=== PATIENT | female | born 1995 | race Caucasian/White ===

== ENCOUNTER 2016-06-08 19:55 | Inpatient (IN) | payer BC ==
[~2016-06-08] VITALS: Ht 167.6 cm; Wt 62.3 kg
[2016-06-08 21:39] LABS: HEMATOCRIT 37.1 % (37-47); MEAN CELL VOLUME 89.2 fL (80-100); MEAN CORPUSCULAR HEMOGLOBIN 31.3 pg (25-34); MEAN PLATELET VOLUME 9.3 fL (7.4-10.4); PLATELET COUNT 170 K/uL (130-400); RED BLOOD COUNT 4.16 M/uL (4.2-5.4); WHITE BLOOD COUNT 25.64 K/uL (4.8-10.8)
--- NOTE | 2016-06-08 21:50 | DIAGNOSTIC IMAGING REPORT ---
CHEST 2 VIEWS ROUTINE CLINICAL HISTORY: Atypical chest pain and shortness of breath COMPARISON STUDY: No previous studies for comparison. FINDINGS: The cardiac and mediastinal contours are normal. There is no failure. There is no lobar consolidation. There are no pleural effusions. There are a few wispy airspace opacities within the left midlung zone versus summation artifact.[ IMPRESSION: Minimal left midlung zone airspace opacities versus summation artifact. Electronically signed by: Salvador Moran M.D. 06/08/2016 9:48 PM Dictated Date/Time: 06/08/2016 9:47 PM
[2016-06-08] MEDS ORDERED: SODIUM CHLORIDE 0.9% 1000ML 1,000 ML IV STA ×2 (21:52→23:09)
[2016-06-08 22:00] LABS: BASO % 0.1 %; BASO ABS # 0.02 K/uL (0-0.2); COMPLETE YES; EOS % 0.1 %; IG% 0.4 %; LYMPH % 4.7 %; MONO % 2.9 %; NEUT % 91.8 %
[2016-06-08 22:05] LABS: ALT/SGPT 17 U/L (12-78); BLOOD UREA NITROGEN 10 mg/dl (7-18); BUN/CREATININE RATIO 11.7 (10-20); CARBON DIOXIDE 26 mmol/L (21-32); CHLORIDE 105 mmol/L (98-107); CREATININE 0.86 mg/dl (0.60-1.20); GLUCOSE 94 mg/dl (70-99); MAGNESIUM 2.3 mg/dl (1.8-2.4); POTASSIUM 3.5 mmol/L (3.5-5.1); SODIUM 140 mmol/L (136-145)
[2016-06-08 22:09] LABS: CALCIUM 9.9 mg/dl (8.5-10.1)
[2016-06-08] MEDS ORDERED: MELATAB2 PO (22:12)
[2016-06-08 22:16] LABS: ALB/GLOB RATIO 1.2 (0.9-2); ALKALINE PHOSPHATASE 55 U/L (45-117); AST/SGOT 14 U/L (15-37)
[2016-06-08 22:22] LABS: URINE APPEARANCE CLEAR (CLEAR); URINE BILIRUBIN NEG (NEG); URINE COLOR YELLOW; URINE NITRITE NEG (NEG); URINE SPECIFIC GRAVITY 1.013 (1.000-1.030); UROBILINOGEN NEG (NEG); ZZUR CULT IF INDIC CLEAN CATCH NO
[2016-06-08 22:23] LABS: MANUAL MICROSCOPIC REQUIRED? NO; REVIEW REQ? NO
[2016-06-09] MEDS ORDERED: LEVOFLOXACIN / D5W 750 MG IV STA (01:40)
[2016-06-09] MEDS ORDERED: POLYETHYLENE (MIRALAX) 17 GM PACK PO PRN (01:45)
[2016-06-09] MEDS ORDERED: MAGNESIUM HYDROXIDE SUSP 30 ML UDC PO PRN (01:45)
[2016-06-09] MEDS ORDERED: ZOLPIDEM TARTRATE 5 MG TAB PO PRN (01:45)
[2016-06-09] MEDS ORDERED: ALUMINUM/MAGNESIUM/SIMETH (MAALOX MAX) 30 ML UDC PO PRN (01:45)
[2016-06-09] MEDS ORDERED: ONDANSETRON INJ 2 MG/ML 2 ML VIAL IV PRN (01:45)
[2016-06-09] MEDS ORDERED: ACETAMINOPHEN 325 MG TAB PO PRN (01:45)
--- NOTE | 2016-06-09 02:02 | EMERGENCY ROOM VISIT NOTE ---
History First contact with patient: 20:05 Chief Complaint: RESPIRATORY PROBLEMS Stated Complaint: CANT BREATHE,FEVER,VOMIT Nursing Triage Summary: Patient states "I just woke up this morning and kept throwing up. I can't really breath very deeply, it kind of hurts. I have chest pain and fever too." History of Present Illness The patient is a 21 year old female who presents to the Emergency Room via private vehicle with complaints of "can't breathe, fever, vomiting". The patient states that she woke up this morning and felt as though she could not breathe, and then had nonstop coughing. She then developed pain with inspiration followed by vomiting. She vomited approximately 4 times between the hours of 7 AM and 9 AM. She states that she took her temperature and it was 101.6F. She states she developed chest pain, which is now diminishing and is across the chest with deep inspiration. She denies any close contacts with similar complaints. She states that she felt one other time similar to this when she began melatonin. She also struck her head , one week ago denies loss of consciousness. She has she's had trouble focusing since then. She states she cannot breathe deeply. She also notes that she did have periumbilical pain as well as hip pain earlier but denies any pain currently. There is no vaginal discharge or urinary symptoms. Review of Systems A complete 10-point Review of Systems was discussed with the patient, with pertinent positives and negatives listed in the History of Present Illness. All remaining Review of Systems questions can be considered negative unless otherwise specified. Past Medical/Surgical History Medical Problems: (1) Nausea & vomiting (2) Shortness of breath Family History Diabetes, heart disease, high blood pressure, cancer, gallbladder disease, kidney disease or stones. Social History Smoking Status: Never Smoker Social History: Patient is a [employer] student. Current/Historical Medications Scheduled Melatonin (Melatonin Maximum Strengt), 5 MG PO HS Allergies Coded Allergies: Doxycycline (Unverified Allergy, Unknown, DIZZINESS, 06/08/16) Physical Exam Vital Signs Date Time Temp Pulse Resp B/P Pulse Ox O2 Delivery O2 Flow Rate FiO2 06/09/16 02:19 37.3 100 23 116/70 97 06/09/16 01:40 101 18 110/69 98 Room Air 06/09/16 01:16 95 06/09/16 00:35 96 20 97 06/09/16 00:30 115/68 06/09/16 00:05 94 21 99 06/09/16 00:00 114/67 06/08/16 23:35 94 24 99 06/08/16 23:30 119/67 06/08/16 23:17 101 24 98 06/08/16 23:00 111/69 06/08/16 22:47 99 19 100 06/08/16 22:30 107/62 06/08/16 22:17 103 21 98 06/08/16 22:15 93 06/08/16 22:12 116/72 06/08/16 21:30 95 21 100 Room Air 06/08/16 21:25 97 24 06/08/16 20:56 110/75 06/08/16 20:53 98 Room Air 06/08/16 19:58 37.0 113 18 122/81 98 Room Air Physical Exam VITAL SIGNS - Vital signs and nursing notes were reviewed. Afebrile, normotensive, tachycardic at a rate of 113 bpm, and is saturating well on room air 98%. GENERAL -21-year-old female appearing her stated age who is in no acute distress. She appears nontoxic. Communicates well with provider and answers questions appropriately. SKIN - Without rashes. No petechial rashes. HEAD - NC/AT. EYES - PERRL with EOMI bilaterally. Sclera anicteric. Palpebral conjunctiva pink and moist with no injection noted. EARS - No deformities of external structures noted on gross examination bilaterally. No pain elicited with palpation of the tragus bilaterally. External auditory canals without discharge or otorrhea. Tympanic membranes pearly hill without retraction or bulging. No fluid or purulent material visualized behind the TM. Handle of malleus, umbo, cone of light, pars tensa/ flaccid all easily visualized. NOSE - Midline and without cyanosis. No epistaxis or purulent drainage noted. Septum midline without deviation or septal hematoma noted. MOUTH/OROPHARYNX - Without perioral cyanosis. Buccal mucosa pink and moist and without leukoplakia. Tongue midline with equal elevation of palate bilaterally. No tonsillar hypertrophy, erythema, or exudates noted. Good dentition noted. Evidence of tonsillectomy. NECK - Neck with FROM. Supple to palpation. No lymphadenopathy noted. No nuchal rigidity. LUNGS - Chest wall symmetric without accessory muscle use, intercostals retractions, or central cyanosis. Normal vesicular breath sounds CTA B/L. No wheezes, rales, or rhonchi appreciated. CARDIAC - RRR with S1/S2. No murmur, rubs, or gallops appreciated. Anterior chest pain is not reproducible. ABDOMEN - Abdominal contour without pulsations or visible masses. BS normoactive all four quadrants. No tenderness, palpable masses, hepatosplenomegaly, or ascites noted. No CVA tenderness. EXTREMITIES - No clubbing or peripheral cyanosis. No pretibial edema present. + 5/5 strength noted in UE/LE bilaterally. NEUROLOGIC - Cranial nerves II through XII grossly intact. Sensory intact to light touch throughout. Patellar reflexes +2/4. PSYCH - A&Ox3 and cooperates fully with examiner. Pt is very pleasant and interacts well with examiner. Medical Decision & Procedures ER Provider Diagnostic Interpretation: CHEST 2 VIEWS ROUTINE CLINICAL HISTORY: Atypical chest pain and shortness of breath COMPARISON STUDY: No previous studies for comparison. FINDINGS: The cardiac and mediastinal contours are normal. There is no failure. There is no lobar consolidation. There are no pleural effusions. There are a few wispy airspace opacities within the left midlung zone versus summation artifact.[ IMPRESSION: Minimal left midlung zone airspace opacities versus summation artifact. Electronically signed by: Salvador Moran M.D. 06/08/2016 9:48 PM Dictated Date/Time: 06/08/2016 9:47 PM Laboratory Results 06/08/16 21:10 Red Blood Count 4.16, Mean Corpuscular Volume 89.2, Mean Corpuscular Hemoglobin 31.3, Mean Corpuscular Hemoglobin Concent 35.0, Mean Platelet Volume 9.3, Neutrophils (%) (Auto) 91.8, Lymphocytes (%) (Auto) 4.7, Monocytes (%) (Auto) 2.9, Eosinophils (%) (Auto) 0.1, Basophils (%) (Auto) 0.1, Neutrophils # (Auto) 23.55, Lymphocytes # (Auto) 1.20, Monocytes # (Auto) 0.75, Eosinophils # (Auto) 0.03, Basophils # (Auto) 0.02 06/08/16 21:10 Test 06/08/16 21:00 06/08/16 21:10 06/08/16 21:14 06/08/16 21:15 Influenza Type A Antigen Neg for Influ A (NEG) Influenza Type B Antigen Neg for Influ B (NEG) White Blood Count 25.64 K/uL (4.8-10.8) Red Blood Count 4.16 M/uL (4.2-5.4) Hemoglobin 13.0 g/dL (12.0-16.0) Hematocrit 37.1 % (37-47) Mean Corpuscular Volume 89.2 fL (80-100) Mean Corpuscular Hemoglobin 31.3 pg (25-34) Mean Corpuscular Hemoglobin Concent 35.0 g/dl (32-36) Platelet Count 170 K/uL (130-400) Mean Platelet Volume 9.3 fL (7.4-10.4) Neutrophils (%) (Auto) 91.8 % Lymphocytes (%) (Auto) 4.7 % Monocytes (%) (Auto) 2.9 % Eosinophils (%) (Auto) 0.1 % Basophils (%) (Auto) 0.1 % Neutrophils # (Auto) 23.55 K/uL (1.4-6.5) Lymphocytes # (Auto) 1.20 K/uL (1.2-3.4) Monocytes # (Auto) 0.75 K/uL (0.11-0.59) Eosinophils # (Auto) 0.03 K/uL (0-0.5) Basophils # (Auto) 0.02 K/uL (0-0.2) RDW Standard Deviation 40.5 fL (36.4-46.3) RDW Coefficient of Variation 12.6 % (11.5-14.5) Immature Granulocyte % (Auto) 0.4 % Immature Granulocyte # (Auto) 0.09 K/uL (0.00-0.02) Anion Gap 9.0 mmol/L (3-11) Est Creatinine Clear Calc Drug Dose 97.6 ml/min Estimated GFR () 112.7 Estimated GFR (Non- 97.3 BUN/Creatinine Ratio 11.7 (10-20) Calcium Level 9.9 mg/dl (8.5-10.1) Magnesium Level 2.3 mg/dl (1.8-2.4) Total Bilirubin 2.7 mg/dl (0.2-1) Aspartate Amino Transf (AST/SGOT) 14 U/L (15-37) Alanine Aminotransferase (ALT/SGPT) 17 U/L (12-78) Alkaline Phosphatase 55 U/L (45-117) Total Creatine Kinase 44 U/L (26-192) Creatine Kinase MB < 0.5 ng/ml (0.5-3.6) Creatine Kinase MB Ratio (0-3.0) Total Protein 8.0 gm/dl (6.4-8.2) Albumin 4.3 gm/dl (3.4-5.0) Globulin 3.7 gm/dl (2.5-4.0) Albumin/Globulin Ratio 1.2 (0.9-2) Lipase 102 U/L (73-393) Thyroid Stimulating Hormone (TSH) 1.790 uIu/ml (0.300-4.500) Monoscreen NEG (NEG) Bedside D-Dimer 180 ng/mlFEU (0-450) Bedside Troponin I 0.000 ng/ml (0-0.045) Bedside Lactic Acid Venous 1.78 mmol/L (0.90-1.70) Test 06/08/16 22:10 Urine Color YELLOW Urine Appearance CLEAR (CLEAR) Urine pH 7.0 (4.5-7.5) Urine Specific [place] 1.013 (1.000-1.030) Urine Protein NEG (NEG) Urine Glucose (UA) NEG (NEG) Urine Ketones TRACE (NEG) Urine Occult Blood NEG (NEG) Urine Nitrite NEG (NEG) Urine Bilirubin NEG (NEG) Urine Urobilinogen NEG (NEG) Urine Leukocyte Esterase NEG (NEG) Urine Test NEG (NEG) Medications Administered Medications (Trade) Dose Ordered Sig/Avel Route Start Time Stop Time Status Last Admin Dose Admin Sodium Chloride 1,000 ml @ 999 mls/hr Q1H1M STAT IV 06/08/16 21:52 06/08/16 22:52 DC 06/08/16 22:12 999 MLS/HR Sodium Chloride 1,000 ml @ 999 mls/hr Q1H1M STAT IV 06/08/16 23:09 06/09/16 00:09 DC 06/08/16 23:27 999 MLS/HR Levofloxacin (Levaquin / D5W) 150 ml @ 100 mls/hr ONE STAT IV 06/09/16 01:40 06/09/16 03:09 DC 06/09/16 01:49 100 MLS/HR Medical Decision Patient was seen and evaluated as above. After obtaining a thorough history and physical examination IV access was initiated and the above workup was performed. Patient presents with inspiratory chest pain, vomiting and subjective complaints of fever. She clinically appears well upon examination. No abdominal pain. CBC does reveal leukocytosis at 25.64, and room blood cell count 4.16. Hemoglobin is normal. [id number] d-dimer is 180. Metabolic studies reveal normal electrolytes, point care lactic elevated at 1.78, total bilirubin elevated at 2.7, AST low at 14. Point care troponin is 0. Lipase and TSH are within normal limits. Urine reveals trace ketones, otherwise negative and negative urine . [place] and flu negative. Benefits versus risk of obtaining a CT scan of the abdomen and pelvis were discussed with patient and her mother. The patient has been reevaluated, and was provided 2 L of normal saline for her tachycardia. This initial EKG did reveal normal sinus rhythm, T-wave abnormality, which continued even after 2 L of normal saline to sinus tachycardia with T-wave abnormalities. Troponin was negative. As the patient continued to appear clinically well, but with the persistent EKG abnormality, as well as elevated bilirubin and tachycardia refractory to saline I do believe that further intervention is warranted here by inpatient admission. Her chest x-ray also revealed possible infiltrate further bleeding to the potential leukocytosis but I do not believe that this is the sole cause. I did discuss the case with the inpatient admission team, Dr. Velasquez. He agreed to evaluate the patient. Please refer to further documentation regarding the patient's stay. In evaluation treatment this patient the following differential diagnoses were entertained: ACS, GA, PE, pneumonia, sepsis, Sirs, , pyelonephritis, pleurisy, pericarditis, among others. Impression Primary Impression: Shortness of breath Additional Impressions: Nausea & vomiting Leukocytosis Total bilirubin, elevated Departure Information Dispostion Admitted as an inpatient Condition GOOD Referrals No Doctor, Assigned (PCP) Patient Instructions [facility] Problem Qualifiers
--- NOTE | 2016-06-09 02:19 | History and Physical ---
History & Physical Date & Time of Service: Jun 09, 2016 at 01:55 Chief Complaint: Cant Breathe,Fever,Vomit Primary Care Physician: No Doctor, Assigned History of Present Illness Source: patient 21 y/o F with no significant medical history. Woke up from sleep with fever, malaise, SOB and pleuritic L CP. She then developed nausea, vomiting and abdominal pain described as soreness which continued for several hours. She was febrile and tachycardic on arrival to the ER. She was not hypoxic. Initial labs reveal impressive leukocytosis and a CXR is equivocal for a L mid lung pneumonia. Past Medical/Surgical History Denies active medical issues Family History Father with HTN - both parents alive and well Social History Does not smoke or drink - [employer] major at [employer] Smoking Status: Never Smoker Allergies Coded Allergies: Doxycycline (Unverified Allergy, Unknown, DIZZINESS, 06/08/16) Home Medications Scheduled Melatonin (Melatonin Maximum Strengt), 5 MG PO HS Review of Systems Constitutional: + chills, + fatigue, + fever, + sweats, + weakness Eyes: No eye pain, No worsening of vision ENT: No hearing loss, No nasal symptoms, No unusual epistaxis Respiratory: + dyspnea at rest, + dyspnea on exertion, + problem reported ( pleuritic CP), + shortness of breath, No cough, No sputum, No wheezing Cardiovascular: + chest pain, + problem reported (tachycardia), No PND, No orthopnea Abdomen: + nausea, + pain, + vomiting, No GI bleeding, No constipation, No diarrhea Musculoskeletal: No joint pain, No muscle pain Genitourinary - Female: No dysuria, No urinary frequency, No urinary urgency Neurologic: No memory loss, No paralysis, No weakness Psychiatric: No depression symptoms Endocrine: + fatigue Hematologic / Lymphatic: No abnormal bleeding/bruising Integumentary: No rash Allergic / Immunologic: No environmental allergies Physical Exam Vital Signs Date Time Temp Pulse Resp B/P Pulse Ox O2 Delivery O2 Flow Rate FiO2 06/09/16 01:40 101 18 110/69 98 Room Air 06/09/16 01:16 95 06/09/16 00:35 96 20 97 06/09/16 00:30 115/68 06/09/16 00:05 94 21 99 06/09/16 00:00 114/67 06/08/16 23:35 94 24 99 06/08/16 23:30 119/67 06/08/16 23:17 101 24 98 06/08/16 23:00 111/69 06/08/16 22:47 99 19 100 06/08/16 22:30 107/62 06/08/16 22:17 103 21 98 06/08/16 22:15 93 06/08/16 22:12 116/72 06/08/16 21:30 95 21 100 Room Air 06/08/16 21:25 97 24 06/08/16 20:56 110/75 06/08/16 20:53 98 Room Air 06/08/16 19:58 37.0 113 18 122/81 98 Room Air General Appearance: WD/WN, no apparent distress Head: normocephalic, atraumatic Eyes: normal inspection, PERRL, EOMI ENT: normal ENT inspection, pharynx normal Neck: supple, no JVD Respiratory/Chest: chest non-tender, lungs clear, normal breath sounds, no respiratory distress, no accessory muscle use Cardiovascular: regular rate, rhythm, no edema, no gallop, no JVD, no murmur, normal peripheral pulses Abdomen/GI: normal bowel sounds, soft, + tenderness (mostly mild RUQ tenderness to palpation) Back: normal inspection, no CVA tenderness Extremities/Musculoskelatal: normal inspection, no calf tenderness, normal range of motion Neurologic/Psych: home health manager II-XII nml as tested, no motor/sensory deficits, alert, normal mood/affect, normal reflexes, oriented x 3 Skin: normal color, warm/dry, no rash Diagnostics Laboratory Results Results Past 24 Hours Test 06/08/16 21:00 06/08/16 21:10 06/08/16 21:14 06/08/16 21:15 Range/Units Influenza Type A Antigen Neg for Influ A NEG Influenza Type B Antigen Neg for Influ B NEG White Blood Count 25.64 4.8-10.8 K/uL Red Blood Count 4.16 4.2-5.4 M/uL Hemoglobin 13.0 12.0-16.0 g/dL Hematocrit 37.1 37-47 % Mean Corpuscular Volume 89.2 80-100 fL Mean Corpuscular Hemoglobin 31.3 25-34 pg Mean Corpuscular Hemoglobin Concent 35.0 32-36 g/dl Platelet Count 170 130-400 K/uL Mean Platelet Volume 9.3 7.4-10.4 fL Neutrophils (%) (Auto) 91.8 % Lymphocytes (%) (Auto) 4.7 % Monocytes (%) (Auto) 2.9 % Eosinophils (%) (Auto) 0.1 % Basophils (%) (Auto) 0.1 % Neutrophils # (Auto) 23.55 1.4-6.5 K/uL Lymphocytes # (Auto) 1.20 1.2-3.4 K/uL Monocytes # (Auto) 0.75 0.11-0.59 K/uL Eosinophils # (Auto) 0.03 0-0.5 K/uL Basophils # (Auto) 0.02 0-0.2 K/uL RDW Standard Deviation 40.5 36.4-46.3 fL RDW Coefficient of Variation 12.6 11.5-14.5 % Immature Granulocyte % (Auto) 0.4 % Immature Granulocyte # (Auto) 0.09 0.00-0.02 K/uL Sodium Level 140 136-145 mmol/L Potassium Level 3.5 3.5-5.1 mmol/L Chloride Level 105 98-107 mmol/L Carbon Dioxide Level 26 21-32 mmol/L Anion Gap 9.0 3-11 mmol/L Blood Urea Nitrogen 10 7-18 mg/dl Creatinine 0.86 0.60-1.20 mg/dl Est Creatinine Clear Calc Drug Dose 97.6 ml/min Estimated GFR () 112.7 Estimated GFR (Non- 97.3 BUN/Creatinine Ratio 11.7 10-20 Random Glucose 94 70-99 mg/dl Calcium Level 9.9 8.5-10.1 mg/dl Magnesium Level 2.3 1.8-2.4 mg/dl Total Bilirubin 2.7 0.2-1 mg/dl Aspartate Amino Transf (AST/SGOT) 14 15-37 U/L Alanine Aminotransferase (ALT/SGPT) 17 12-78 U/L Alkaline Phosphatase 55 45-117 U/L Total Creatine Kinase 44 26-192 U/L Creatine Kinase MB < 0.5 0.5-3.6 ng/ml Creatine Kinase MB Ratio 0-3.0 Total Protein 8.0 6.4-8.2 gm/dl Albumin 4.3 3.4-5.0 gm/dl Globulin 3.7 2.5-4.0 gm/dl Albumin/Globulin Ratio 1.2 0.9-2 Lipase 102 73-393 U/L Thyroid Stimulating Hormone (TSH) 1.790 0.300-4.500 uIu/ml Monoscreen NEG NEG Bedside D-Dimer 180 0-450 ng/mlFEU Bedside Troponin I 0.000 0-0.045 ng/ml Bedside Lactic Acid Venous 1.78 0.90-1.70 mmol/L Test 06/08/16 22:10 Range/Units Urine Color YELLOW Urine Appearance CLEAR CLEAR Urine pH 7.0 4.5-7.5 Urine Specific [place] 1.013 1.000-1.030 Urine Protein NEG NEG Urine Glucose (UA) NEG NEG Urine Ketones TRACE NEG Urine Occult Blood NEG NEG Urine Nitrite NEG NEG Urine Bilirubin NEG NEG Urine Urobilinogen NEG NEG Urine Leukocyte Esterase NEG NEG Urine Test NEG NEG Microbiology Results 06/08/16 Blood Culture, Received Pending 06/08/16 Group A Streptococcus Screen - Final, Resulted SPECIMEN NEGATIVE FOR GROUP A BETA ST... 06/08/16 Group A Streptococcus Screen (CRISTINA), Resulted Pending Diagnostic Radiology CXR: Minimal left midlung zone airspace opacities versus summation artifact. Impression Assessment and Plan 21 y/o F with no significant medical history. Woke up from sleep with fever, malaise, SOB and pleuritic L CP. She then developed nausea, vomiting and abdominal pain described as soreness which continued for several hours. She was febrile and tachycardic on arrival to the ER. She was not hypoxic. Initial labs reveal impressive leukocytosis and a CXR is equivocal for a L mid lung pneumonia PNM. 1) Pleuritic CP, SOB, leukocytosis - CXR is equivocal however pt has a pneumonia clinically. She would be a candidate for outpt treatment but is not currently tolerating PO. Will start Levaquin, IVF, antiemetics and assess for improvement/D/C AM. 2) N/V - IVF, antiemetics, NPO until AM reassessment - we will obtain an abdominal US as she is tender on exam and has a bilirubin elevation although this is likely Gilbert's. Full code - Heparin prophylaxis Total time for this admit including review of labs, meds, imaging - discussion with pt/parent and ER attending - 33 min Level of Care Med/Surg Resuscitation Status FULL RESUSCITATION VTE Prophylaxis VTE Risk Assessment Done? Y/N: Yes Risk Level: Very Low Given or contraindicated: Unfractionated heparin SQ
[2016-06-09 03:15] VITALS: BP 112/76; PULSE 94; TEMP 36.9; O2SAT 99; Ht 167.6 cm; Wt 62.3 kg
[2016-06-09] MEDS: D5NSS + 20MEQ KCL 1,000 ML IV SCH ×2 (04:31→10:42)
[2016-06-09 07:18] VITALS: BP 107/63; PULSE 91; TEMP 36.9; O2SAT 98
--- NOTE | 2016-06-09 07:21 | DIAGNOSTIC IMAGING REPORT ---
ULTRASOUND RIGHT UPPER QUADRANT ABDOMEN CLINICAL HISTORY: Right upper quadrant abdominal pain. COMPARISON STUDY: No priors. TECHNIQUE: Real-time, grayscale, and color flow sonography of the right upper quadrant of the abdomen was performed. Images are reviewed in the transverse and longitudinal planes. FINDINGS: Liver: The liver is normal in top normal in size measuring up to 18 cm. Hepatic echotexture is normal. There is no intrahepatic biliary ductal dilatation. The main portal vein is patent. Gallbladder: There are least 2 small gallbladder polyps measure up to 4 mm. The gallbladder is otherwise normal in appearance. No gallstones are identified. There is no gallbladder wall thickening or pericholecystic fluid. A sonographic Maxwell's sign is reportedly absent. The common bile duct measures up to 0.2 cm in diameter. Pancreas: Visualized portions of the pancreatic head and body are normal in appearance. The splenic vein is patent. Right kidney: Survey images of the right kidney demonstrate normal size and echotexture. There is no hydronephrosis. Ascites: There is trace perihepatic fluid. Lymph nodes: A prominent lymph node is suggested in the marisa hepatis measuring up to 2.5 cm. IMPRESSION: 1. No gallstones are identified. 2. Trace perihepatic ascites. 3. A prominent lymph node is suggested in the marisa hepatis and measures up to 2.5 cm. This is of indeterminant significance but is of low suspicion. This can be followed with an abdominal CT if clinically warranted. 4. Small gallbladder polyps are incidentally noted. Electronically signed by: Skip Willoughby M.D. 06/09/2016 7:19 AM Dictated Date/Time: 06/09/2016 7:14 AM
[2016-06-09 10:34] LABS: BASO % 0.1 %; BASO ABS # 0.01 K/uL (0-0.2); COMPLETE YES; EOS % 0.4 %; HEMATOCRIT 32.8 % (37-47); IG% 0.2 %; LYMPH % 5.8 %; LYMPH ABS # 0.79 K/uL (1.2-3.4); MEAN CELL VOLUME 90.6 fL (80-100); MEAN CORPUSCULAR HEMOGLOBIN 31.2 pg (25-34); MEAN CORPUSCULAR HGB CONC 34.5 g/dl (32-36); MEAN PLATELET VOLUME 9.2 fL (7.4-10.4); MONO % 3.3 %; NEUT % 90.2 %; PLATELET COUNT 141 K/uL (130-400); RED BLOOD COUNT 3.62 M/uL (4.2-5.4); WHITE BLOOD COUNT 13.54 K/uL (4.8-10.8)
[2016-06-09] MEDS ORDERED: OPTIRAY 320 IV PRN (10:45)
[2016-06-09 11:07] LABS: BUN/CREATININE RATIO 8.9 (10-20); CALCIUM 8.7 mg/dl (8.5-10.1); CREATININE 0.69 mg/dl (0.60-1.20); MAGNESIUM 2.4 mg/dl (1.8-2.4); POTASSIUM 3.9 mmol/L (3.5-5.1)
--- NOTE | 2016-06-09 11:07 | DIAGNOSTIC IMAGING REPORT ---
CT ABD/PELVIS IV CONTRAST ONLY CLINICAL HISTORY: Abdominal pain. Elevated bilirubin. Abnormal ultrasound with marisa hepatis lymph node. COMPARISON STUDY: Biliary ultrasound dated 06/09/2016 TECHNIQUE: Following the IV administration of 117 mL of Optiray-320, CT scan of the abdomen and pelvis was performed from the lung bases to the proximal femurs. Images are reviewed in the axial, sagittal, and coronal planes. IV contrast was administered without complication. CT DOSE: 401.04 mGycm FINDINGS: Lower chest: There are minimal basilar atelectatic changes. Liver: The contrast-enhanced liver is normal in size, contour, and attenuation. There is no intrahepatic biliary ductal dilatation. The hepatic veins and portal veins are patent. Gallbladder: Unremarkable. Spleen: Top normal in size measuring 11.5 cm. Pancreas: Unremarkable. Adrenal glands: Unremarkable. Kidneys: There is symmetric renal cortical enhancement. The kidneys are normal in size without hydronephrosis. Bowel: Evaluation the bowel is limited given the lack of orally administered contrast. There are no transition zones indicate bowel obstruction. There is no evidence of acute diverticulitis. The appendix is not visualized with certainty. Peritoneum: There is minimal free fluid within the pelvis and inferior to the cecal tip. Vasculature: The abdominal aorta is normal in course and caliber. Adenopathy: None. Pelvic viscera: The bladder, and pelvic viscera are unremarkable. Skeletal structures: No destructive osseous lesions are seen. IMPRESSION: 1. Limited evaluation of the bowel given the paucity of intra-abdominal fat and the lack of orally administered contrast 2. No evidence of bowel obstruction. No evidence of free air 3. No evidence of pathologic adenopathy 4. Small amount of free fluid in the pelvis and inferior to the cecal tip Electronically signed by: Salvador Moran M.D. 06/09/2016 11:05 AM Dictated Date/Time: 06/09/2016 10:59 AM
[2016-06-09 11:25] LABS: ALB/GLOB RATIO 1.1 (0.9-2)
[2016-06-09 11:51] LABS: INR 1.2 (0.9-1.1); PROTHROMBIN TIME (PATIENT) 12.7 SECONDS (9.0-12.0)
--- NOTE | 2016-06-09 13:51 | DIAGNOSTIC IMAGING REPORT ---
CHEST 2 VIEWS ROUTINE HISTORY: Possible abnormal chest x-ray. Pneumonia COMPARISON: Chest 06/08/2016. FINDINGS: No pleural effusions. No pneumothorax. The heart is normal in size. Hazy appearance to the left midlung zone is not confirmed on the lateral view. This is likely due to overlapping soft tissue. No focal lung consolidations to suggest pneumonia. IMPRESSION: No acute process. Electronically signed by: Aron Sr M.D. 06/09/2016 1:50 PM Dictated Date/Time: 06/09/2016 1:49 PM
[2016-06-09] MEDS ORDERED: HEPARIN SOD 5000 UNIT/0.5 ML CARP SQ SCH (14:00)
[2016-06-09 15:00] VITALS: BP 100/65; PULSE 89; TEMP 37; O2SAT 100
[2016-06-09] MEDS ORDERED: RANITIDINE HCL 150 MG TAB PO ONE (15:17)
[2016-06-09] MEDS ORDERED: ZNT150 PO (16:12)
--- NOTE | 2016-06-09 16:32 | Discharge Instructions ---
Discharge Instructions Date of Service Jun 09, 2016. Admission Reason for Admission: Nausea And Vomiting, Shortness Of Breath Discharge Discharge Diagnosis / Problem: Gastroesophageal Reflux Discharge Goals Goal(s): Decrease discomfort, Improve function, Increase independence Activity Recommendations Activity Limitations: resume your previous activity . Instructions / Follow-Up Instructions / Follow-Up Gastroenteritis and Gastroesophageal Reflux (Acid Reflux): - Your symptoms are likely related to a viral gastroenteritis - your elevated white count and elevated bilirubin is likely related to vomiting as these numbers have improved. - CT of your abdomen did not reveal any abnormalities - As well, with your family significant history of reflux this can largely be contributing to your symptoms - You will be provided with a prescription for ranitidine 150 mg twice a day to take for the next 14 days - would recommend following up with a family doctor who may want to place you on this medication for a longer duration. - Recommend avoidance of aggravating foods such as: Acidic foods, chocolate, alcohol, spicy foods.... Elevated Bilirubin: - This number may be elevated due to frequent vomiting over the past day - on repeat labs it is coming down - Another possibility is a condition called Gilbert's syndrome - which is harmless and is just a condition where the liver does not process the bilirubin at normal rate -- Illness, dehydration, menstruation, stress, strenuous exercise, and lack of sleep ( BEING A COLLEGE STUDENT!!).. all of which actually can cause increases in bilirubin which can explain these findings - this can be something to monitor for however is not something that needs treatment. EKG Changes - T wave Inversion: - These findings have remained stable while admitted. Did discuss this with one of our cardiologists who recommends having a follow-up EKG in a couple weeks when you are feeling better. If these T wave inversions resolve then it may just be a transient occurrence and if they remain this is likely a normal finding for you. Pneumonia: - With repeat chest x-ray does not show pneumonia consolidations as we future lungs from the back and side (the original findings are actually overlying soft tissue of the chest as the side view does not show these - at this time we are not going to continue antibiotics as these new images do not support pneumonia Follow-Up: - Recommend following up with family doctor in 1-2 weeks. - Return to the hospital if symptoms worsen Current Hospital Diet Patient's current hospital diet: Clear Liquid Diet Discharge Diet Recommended Diet: Regular Diet Pending Studies Studies pending at discharge: no Medical Emergencies . Who to Call and When: Medical Emergencies: If at any time you feel your situation is an emergency, please call 911 immediately. . Non-Emergent Contact Non-Emergency issues call your: Primary Care Provider Call Non-Emergent contact if: you have a fever, your pain is concerning you, you have any medication questions . . "Provider Documentation" section prepared by Fatou Mccarty. . VTE Core Measure Inpt VTE Proph given/why not?: Unfractionated heparin SQ
[2016-06-09 16:38] VITALS: BP 100/65; PULSE 89; TEMP 37; O2SAT 100
--- NOTE | 2016-06-09 17:09 | Discharge Summary ---
Discharge Summary Date of Service Jun 09, 2016. (Fatou Mccarty PA-C) Discharge Summary Admission Date: Jun 09, 2016 at 01:46 Discharge Date: Jun 09, 2016 Discharge Disposition: Home Principal Diagnosis: Gastroenteritis, GERD Problems/Secondary Diagnoses: 1. Unremarkable PMHx Procedures: 1. CHEST 2 VIEWS ROUTINE FINDINGS: No pleural effusions. No pneumothorax. The heart is normal in size. Hazy appearance to the left midlung zone is not confirmed on the lateral view. This is likely due to overlapping soft tissue. No focal lung consolidations to suggest pneumonia. IMPRESSION: No acute process. 2. CT ABD/PELVIS IV CONTRAST ONLY FINDINGS: Lower chest: There are minimal basilar atelectatic changes. Liver: The contrast-enhanced liver is normal in size, contour, and attenuation. There is no intrahepatic biliary ductal dilatation. The hepatic veins and portal veins are patent. Gallbladder: Unremarkable. Spleen: Top normal in size measuring 11.5 cm. Pancreas: Unremarkable. Adrenal glands: Unremarkable. Kidneys: There is symmetric renal cortical enhancement. The kidneys are normal in size without hydronephrosis. Bowel: Evaluation the bowel is limited given the lack of orally administered contrast. There are no transition zones indicate bowel obstruction. There is no evidence of acute diverticulitis. The appendix is not visualized with certainty. Peritoneum: There is minimal free fluid within the pelvis and inferior to the cecal tip. Vasculature: The abdominal aorta is normal in course and caliber. Adenopathy: None. Pelvic viscera: The bladder, and pelvic viscera are unremarkable. Skeletal structures: No destructive osseous lesions are seen. IMPRESSION: 1. Limited evaluation of the bowel given the paucity of intra-abdominal fat and the lack of orally administered contrast 2. No evidence of bowel obstruction. No evidence of free air 3. No evidence of pathologic adenopathy 4. Small amount of free fluid in the pelvis and inferior to the cecal tip (Fatou Mccarty PA-C) Procedures: ULTRASOUND RIGHT UPPER QUADRANT ABDOMEN CLINICAL HISTORY: Right upper quadrant abdominal pain. COMPARISON STUDY: No priors. TECHNIQUE: Real-time, grayscale, and color flow sonography of the right upper quadrant of the abdomen was performed. Images are reviewed in the transverse and longitudinal planes. FINDINGS: Liver: The liver is normal in top normal in size measuring up to 18 cm. Hepatic echotexture is normal. There is no intrahepatic biliary ductal dilatation. The main portal vein is patent. Gallbladder: There are least 2 small gallbladder polyps measure up to 4 mm. The gallbladder is otherwise normal in appearance. No gallstones are identified. There is no gallbladder wall thickening or pericholecystic fluid. A sonographic Maxwell's sign is reportedly absent. The common bile duct measures up to 0.2 cm in diameter. Pancreas: Visualized portions of the pancreatic head and body are normal in appearance. The splenic vein is patent. Right kidney: Survey images of the right kidney demonstrate normal size and echotexture. There is no hydronephrosis. Ascites: There is trace perihepatic fluid. Lymph nodes: A prominent lymph node is suggested in the marisa hepatis measuring up to 2.5 cm. IMPRESSION: 1. No gallstones are identified. 2. Trace perihepatic ascites. 3. A prominent lymph node is suggested in the marisa hepatis and measures up to 2.5 cm. This is of indeterminant significance but is of low suspicion. This can be followed with an abdominal CT if clinically warranted. 4. Small gallbladder polyps are incidentally noted. (Letha Liu MD) Medication Reconciliation New Medications: Ranitidine HCl (Ranitidine HCl) 150 Mg Tab 150 MG PO BID for 14 Days, #28 TAB Continued Medications: Melatonin (Melatonin Maximum Strengt) 5 Mg Tab 5 MG PO HS, TAB 1 Refill Discharge Exam REVIEW OF SYSTEMS: General/Constitutional: +fatigue; Denies fever/chills, weakness, weight gain/ loss ENT: Denies visual changes, nasal drainage, hearing loss, sore throat, trouble swallowing Cardiovascular: Denies chest pain, palpitations, edema Respiratory: Denies cough, sputum, SOB, wheezing, orthopnea GI: Denies nausea, vomiting, abdominal pain, constipation, diarrhea, melena/ hematochezia : Denies dysuria, frequency, hematuria Musculoskeletal: Denies joint/muscle aches, weakness, swelling Neurologic: Denies dizziness/lightheadedness, numbness/tingling, weakness Psychiatric: Deferred Endocrine: Deferred Hematologic/Lymphatic: Denies bleeding/clotting abnormalities Skin: Denies rash, itch, new skin changes, easy bruising Allergy/Immunologic: Deferred PHYSICAL EXAM:: General Appearance: WDWN in NAD who is A&O x 3 HEENT: Head is normocephalic/atraumatic; EOMI; PERRLA; Hearing grossly intact; Mucous membranes moist; Pharynx negative for exudate/lesions Neck: Supple; Trachea midline; Neg JVD; Neg lymphadenopathy Heart: RRR with no M/G/R Lungs: CTA in all lung [place] bilaterally; Respirations unlabored; Neg accessory muscle use Abdomen: Soft, non-tender, non-distended; Positive BS x 4 quadrants; Neg organomegaly Extremities: Capillary refill < 2 seconds; Neg cyanosis or edema Neurological: Speech clear; Gross motor/sensory function intact; Neg focal neurologic deficits Psychiatric: Appropriate mood/affect Skin: Normal Color; Warm/Dry; Neg rashes, ecchymosis, lacerations/ulcerations (Fatou Mccarty, ERIK) Hospital Course ADMISSION: 21 y/o F with no significant medical history. Woke up from sleep with fever, malaise, SOB and pleuritic L CP. She then developed nausea, vomiting and abdominal pain described as soreness which continued for several hours. She was febrile and tachycardic on arrival to the ER. She was not hypoxic. Initial labs reveal impressive leukocytosis and a CXR is equivocal for a L mid lung pneumonia. HOSPITAL COURSE: Ms. Gandhi was admitted for fever, malaise, pleuritic CP, N/V, and abdominal pain. Initial consideration for pneumonia however repeat chest x- ray with lateral view does not support this finding. Symptoms largely resolved after adequate IV hydration. Due to elevated bilirubin, abdominal ultrasound obtained which was largely unremarkable except for evidence of a prominent lymph node. CT abdomen and pelvis performed with no significant findings except for small fluid near the cecum. She is tolerating an advanced diet and all symptoms have resolved at this point. Upon further assessment, patient has a significant family history of GERD and Barksdale's esophagus. She also states that this pleuritic chest pain has been intermittent for approximately one year. Also reports similar symptoms with use of doxycycline that she has been taking for skin issues. She has not had doxycycline in approximately one month. Question of Gilbert's syndrome versus vomiting as reason for elevated bilirubin. EKG significant for T-wave inversions in multiple leads, predominately III, avF, V1, V3, V4. Troponins negative. Recommend follow-up EKG when all symptoms resolve as this may be a normal finding for her versus transient finding She was discharged home on ranitidine 150 mg BID 2 weeks. She was instructed to follow-up with family doctor and is optimal for discharge home. Total Time Spent: Greater than 30 minutes This includes examination of the patient, discharge planning, medication reconciliation, and communication with other providers. (Fatou Mccarty, ERIK) Discharge Instructions Please refer to the electronic Patient Visit Report (Discharge Instructions) for additional information. (Fatou Mccarty PA-C) Reviewed: Pt Seen/Exam by Me (Letha Liu MD) History [facility] [employer] Supervision Note: I interviewed and examined the patient. Discussed with JUANCARLOS Mccarty and agree with findings and plan as documented in the note. Any exceptions or clarifications are listed here: Pt much improved, feels almost completely back to her normal self after receiving IVFs and did get one dose of Levaquin. SHe is tolerating a diet and has no abd pain at all. No more chest pain, not really coughing much at all. No more N/V. WBC count down to 13 and afebrile here, Tbili improved. Monspot neg, Rapid flu neg, Rapid strep negative. VSS, afebrile NAD, AAOx3 HEENT: OP clear RRR no mgr nl S1S2, no S3S4 CTAB no wcr Abd soft NT ND +BS Ext no edema Skin no rashes 21 yo female with likely viral GE and fever, leukocytosis,SIRS,now all resolved. Also with chest pain likely GERD related and intermittently chronic for over 1 year. -Zantac bid x 2 weeks -hydration at home -no need for abx as repeat CXR normal -marisa hepatis LN nonspecific and could be reactive to gastroenteritis?---> CT abd/pel showed mild/borderline splenomegaly and otherwise no other lymphadenopathy, liver ok -Recommend repeat RUQ Ultrasound in 4-6 weeks to reassess marisa hepatis lymph node Documented By: Letha Liu (Letah Liu MD)
[2016-06-09] MEDS ORDERED: RANITIDINE HCL 150 MG TAB PO SCH (21:00)
[2016-06-10] MEDS ORDERED: LEVOFLOXACIN / D5W 750 MG in PREMIXED IN D5W 150 ML IV SCH (02:00)
[2016-06-13 14:57] LABS: EBV EARLY ANTIGEN AB <0.91 INDEX; EPSTEIN BARR VIR CAPSID IGG 3.82 INDEX
== END 2016-06-09 17:45 | disposition home or self-care (01) | DRG 392 ==
LOC: ENRESERVTM → CANRESERV → ENRESERVDT → C.EDB 19:58 → C.MS2W 06-09 01:46
PROVIDERS: ADMIT Internal Medicine; ATTEND Family Medicine
DX: K52.9 Noninfective gastroenteritis and colitis, unspecified (principal); K21.9 Gastro-esophageal reflux disease without esophagitis; R07.9 Chest pain, unspecified; D72.829 Elevated white blood cell count, unspecified; B34.9 Viral infection, unspecified; R11.2 Nausea with vomiting, unspecified; R94.31 Abnormal electrocardiogram [ECG] [EKG]; E80.4 Gilbert syndrome; Z79.899 Other long term (current) drug therapy